=== PATIENT | female | born 1965 | race Caucasian/White ===

== ENCOUNTER 2023-08-15 09:29 | Emergency (ER) | payer OTHER ==
[~2023-08-15] VITALS: Ht 149.9 cm; Wt 49.9 kg
[2023-08-15] MEDS ORDERED: OXYC5 PO (12:17)
[2023-08-15] MEDS ORDERED: ONDA4ODT MM (12:17)
[2023-08-15 12:59] VITALS: BP 130/76
== END 2023-08-15 13:44 | disposition home or self-care (01) ==
LOC: ER 09:29
DX: S82.851A Displaced trimalleolar fracture of right lower leg, initial encounter for closed fracture (principal); W18.42XA Slipping, tripping and stumbling without falling due to stepping into hole or opening, initial encounter
CPT/HCPCS: 27818; 73600; 73610; 73700; 96374; 96375; 96376; 99152; 99284-25; A9270; J1885; J2270; J2405; J2704; J3010; J7030